=== PATIENT | male | born 1975 | race African-American/Black ===

== ENCOUNTER 2021-02-13 11:09 | Emergency (ER) | payer OTHER ==
[~2021-02-13] VITALS: Ht 177.8 cm; Wt 88.5 kg
[~2021-02-13 11:09] MED LIST: NORCO 5-325 TA1 EACH PO
[2021-02-13] MEDS ORDERED: INVEGA 3 MG3 MG PO (11:11)
[2021-02-13] MEDS ORDERED: BACTRIM DS TAB1 EACH PO (13:34)
[2021-02-13 13:49] VITALS: BP 153/101
== END 2021-02-13 13:58 | disposition home or self-care (01) ==
LOC: ER 11:09
DX: L02.01 Cutaneous abscess of face (principal); F20.9 Schizophrenia, unspecified; F17.210 Nicotine dependence, cigarettes, uncomplicated; Z79.899 Other long term (current) drug therapy